=== PATIENT | female | born 1995 | race Caucasian/White ===

== ENCOUNTER 2016-06-17 11:47 | Emergency (ER) | payer OTHER ==
[2016-06-17 13:07] VITALS: BP 121/77
--- NOTE | 2016-06-17 15:27 | UC ---
Complaint Female HPI - HPI Summary HPI Summary: PATIENT HAS HAD UNPROTECTED SEX WITH TWO DIFFERENT PARTNERS IN THE LAST SIX MONTHS AND WOULD LIKE GC/CHLAMYDIA TESTING. PATIENT REFUSES HIV TESTING, SYPHILLIS AND OTHER TESTING, WELL PELVIC EXAM. SHE DENIES ANY SYMPTOMS, NO DISCHARGE AND NO LESIONS OR RASHES. . (JUST WANTS "TO GET IT CHECKED OUT"). PATIENT ALSO REFUSES ANY PROPHYLACTIC ANTIBIOTIC TREATMENT AT THIS TIME, WANTS TO WAIT FOR RESULTS. - History Of Current Complaint Chief Complaint: UCGU Stated Complaint: STD TESTING Time Seen by Provider: 06/17/16 14:06 Hx Obtained From: Patient Hx Last Menstrual Period: 20 days ago Onset/Duration: Resolved - NO SYMPTOMS Severity Currently: None Pain Intensity: 0 Pain Scale Used: 0-10 Numeric Character: Not Applicable Aggravating Factor(s): Nothing Alleviating Factor(s): Nothing Associated Signs And Symptoms: Positive: Negative. Negative: Fever, Back Pain, Vaginal Bleeding/Discharge, Vaginal Discharge, Nausea, Vomiting(# Of Episodes =) , Genital Swelling, Genital Blisters - Risk Factors Ectopic Risk Factor: Negative Ovarian Torsion Risk Factor: Negative - Allergies/Home Medications Allergies/Adverse Reactions: Allergies Allergy/AdvReac Type Severity Reaction Status Date / Time No Known Allergies Allergy Verified 06/17/16 13:07 PMH/Surg Hx/FS Hx/Imm Hx Previously Healthy: Yes - Surgical History Surgical History: None - Family History Known Family History: Negative: Renal Disease - Social History Occupation: Student Lives: With Family Alcohol Use: Occasionally Substance Use Type: None Smoking Status (MU): Current Some Day Smoker Review of Systems Constitutional: Negative Skin: Negative Eyes: Negative ENT: Negative Respiratory: Negative Cardiovascular: Negative Gastrointestinal: Negative Genitourinary: Negative Motor: Negative Neurovascular: Negative Musculoskeletal: Negative Neurological: Negative Psychological: Negative All Other Systems Reviewed And Are Negative: Yes Physical Exam Triage Information Reviewed: Yes Appearance: Well-Appearing, No Pain Distress, Well-Nourished Vital Signs: Initial Vital Signs Temp 96.6 F 06/17/16 13:03 Pulse 62 06/17/16 13:03 Resp 12 06/17/16 13:03 BP 121/77 06/17/16 13:03 Pulse Ox 100 06/17/16 13:03 Vital Signs Reviewed: Yes Eye Exam: Normal ENT Exam: Normal ENT: Positive: Normal ENT inspection, Hearing grossly normal, Pharynx normal, TMs normal Dental Exam: Normal Neck exam: Normal Neck: Positive: Supple, Nontender, No Lymphadenopathy Respiratory Exam: Normal Respiratory: Positive: Chest non-tender, Lungs clear, Normal breath sounds, No respiratory distress, No accessory muscle use Cardiovascular Exam: Normal Cardiovascular: Positive: RRR, No Murmur, Pulses Normal Abdominal Exam: Normal Abdomen Description: Positive: Nontender, No Organomegaly, Soft Musculoskeletal Exam: Normal Musculoskeletal: Positive: Strength Intact, ROM Intact Neurological Exam: Normal Psychological Exam: Normal Skin Exam: Normal Complaint Female Dx - Course Course Of Treatment: PATIENT REFUSED ANY ADDITIONAL EXAMINATION OR TESTING , ALSO REFUSED PROPHYLACTIC ANTIBIOTICS. - Differential Dx/Diagnosis Differential Diagnosis/HQI/PQRI: Pelvic Inflammatory Disease, , Sexually Transmitted Disease, Urinary Tract Infection Provider Diagnoses: GC/CHLAMYDIA TESTING Discharge - Discharge Plan Condition: Stable Disposition: HOME Patient Education Materials: Sexually Transmitted Diseases (ED), Safe Sex (ED) Referrals: [facility] [Outside] No Primary Care Phys,NOPCP [Primary Care Provider] - Additional Instructions: YOU HAVE REFUSED HIV TESTING AND ADDITIONAL STD TESTING, INCLUDING PELVIC EXAM. YOU HAVE ALSO REFUSED PROPHYLACTIC ANTIBIOTIC TREATMENT FOR GC.CHLAMYDIA. PLEASE RETURN IF YOU DEVELOP SYMPTOMS OR IF YOU HAVE POSITIVE TEST RESULTS. CAMPUS RESOURCES ARE ALSO AVAILABLE FOR FREE CONFIDENTIAL STD TESTING [facility].
== END 2016-06-17 14:54 | disposition home or self-care (01) ==
LOC: UCEAST 11:47
DX: Z11.3 Encounter for screening for infections with a predominantly sexual mode of transmission (principal); Z77.21 Contact with and (suspected) exposure to potentially hazardous body fluids
CPT/HCPCS: 87491; 87591; 99201; G0463